=== PATIENT | female | born 1990 | race Hispanic/Latino ===

== ENCOUNTER 2024-06-10 18:34 | Inpatient (IN) | payer MEDICAID, OTHER, SELFPAY ==
[2024-06-10 19:14] VITALS: BMI 32.5
[2024-06-10] MEDS ORDERED: hydrALAZINE 20 MG/ML VIAL SLOW IVP PRN ×2 (20:44→23:21)
[2024-06-10] MEDS ORDERED: Lidocaine 1% (PF) 30 ML VIAL SC PRN (23:21)
[2024-06-10] MEDS ORDERED: Promethazine HCl 25 MG/ML VIAL IM PRN (23:21)
[2024-06-10] MEDS ORDERED: Ondansetron PF 4 MG/2 ML Vial IVP PRN (23:21)
[2024-06-10] MEDS ORDERED: Carboprost 250 MCG/ML AMP IM PRN (23:26)
[2024-06-10] MEDS ORDERED: Ibuprofen 800 MG TAB PO PRN (23:26)
[2024-06-10] MEDS ORDERED: Tranexamic Acid 1,000 MG/10 ML VIAL IVP PRN (23:26)
[2024-06-10] MEDS ORDERED: Diphenoxylate HCl/Atropine Tablet PO PRN (23:26)
[2024-06-10] MEDS ORDERED: Misoprostol 200 MCG TAB PR PRN (23:26)
[2024-06-10] MEDS ORDERED: Methylergonovine 0.2 MG/ML VIAL IM PRN (23:26)
[2024-06-10] MEDS ORDERED: Oxytocin 30 units/NS 500 ML 500 ML IV SCH ×2 (23:30)
[2024-06-10] MEDS: Lactated Ringer's 1,000 ML IV SCH (23:58)
[2024-06-11] MEDS: Penicillin G Potassium 5 MILL.UNITS in Sodium Chloride 0.9% 100 ML IVPB SCH (00:09)
[2024-06-11 00:10] LABS: Hematocrit 34.7 % (34.9-44.5); Hemoglobin 11.4 g/dL (12.0-15.5); Mean Corpuscular HGB CONC 32.9 g/dL (32.0-36.0); Mean Corpuscular Hemoglobin 28.2 pg (27.0-33.0); Mean Corpuscular Volume 85.9 fL (81.6-98.3); Platelet Count 217 10x3/uL (150-450); RBC Distribution Width 12.7 % (11.5-14.5); Red Blood Cell (RBC) Count 4.04 10x6/uL (3.90-5.03); White Blood Cell (WBC) Count 6.3 10x3/uL (3.5-10.5)
[2024-06-11 00:22] LABS: Glucose 76 mg/dL (70-105)
[2024-06-11 00:47] LABS: HBsAg Index 0.19 S/CO (0-0.99); Hep B Surf Ag - L&D Non-Reactive S/CO (NonReactive)
[2024-06-11 00:48] LABS: Syphilis Antibody Nonreactive (Nonreactive); Syphilis Antibody Index 0.03 S/CO (<1.00 Non-Reactive)
[2024-06-11] MEDS: Penicillin G 2.5 MILL.units 2.5 MILL.UNITS in Premix 1 BAG IVPB SCH (03:15)
[2024-06-11] MEDS: Oxytocin 30 units/NS 500 ML 500 ML IV SCH (03:18)
[2024-06-12] MEDS: fentaNYL 50 mcg/mL 1 mL Vial SLOW IVP PRN (00:08)
[2024-06-12] MEDS ORDERED: hydrALAZINE 20 MG/ML VIAL SLOW IVP PRN (05:52)
[2024-06-12] MEDS: Ibuprofen 800 MG TAB PO SCH (05:55)
[2024-06-12] MEDS ORDERED: Bisacodyl 10 MG SUPP PR PRN (06:00)
[2024-06-12] MEDS ORDERED: Boostrix 0.5 ML (Tdap) VIAL (>/=7 yrs of age) IM SCH (06:00)
[2024-06-12] MEDS ORDERED: Milk Of Magnesia 30 ML UDCUP PO PRN (06:00)
[2024-06-12] MEDS ORDERED: Ondansetron PF 4 MG/2 ML Vial IVP PRN (06:00)
[2024-06-12] MEDS ORDERED: Oxytocin 30 units/NS 500 ML 1,000 ML IV SCH (06:00)
[2024-06-12] MEDS ORDERED: Bupivacaine 0.25% HCL 30 ML VIAL ONE (07:00)
[2024-06-12] MEDS: Ferrous Sulfate 325 MG TAB PO SCH (08:10)
[2024-06-12] MEDS: Docusate 100 MG CAP PO SCH (08:10)
[2024-06-12] MEDS: Acetaminophen 500 MG TAB PO PRN (11:21)
[2024-06-12] MEDS: Benzocaine-Menthol 82.5 ML CAN TOP PRN (11:22)
[2024-06-12] MEDS: Phytonadione Neonatal 1 MG/0.5 ML AMP ONE (16:42)
[2024-06-12] MEDS: Lidocaine 1% (PF) 30 ML VIAL ONE (16:42)
[2024-06-12] MEDS: Erythromycin Base 0.5% Oint 1 GM TUBE ONE (16:42)
[2024-06-12] MEDS: Hepatitis B Vaccine 10 MCG/0.5 ML SYR ONE (16:42)
[2024-06-12] MEDS: Methylergonovine 0.2 MG/ML VIAL ONE (16:43)
[2024-06-12] MEDS: Oxytocin 30 units/NS 500 ML 500 ML ONE (16:43)
[2024-06-12] MEDS: Carboprost 250 MCG/ML AMP ONE (16:43)
[2024-06-12] MEDS: fentaNYL/Ropivacaine Epidural 100 ML ONE (16:43)
[2024-06-12] MEDS: Misoprostol 200 MCG TAB ONE (16:43)
[2024-06-12] MEDS: Tranexamic Acid 1,000 MG/10 ML VIAL ONE (16:43)
[2024-06-13 08:05] VITALS: BP 107/66; TEMP 97.7
== END 2024-06-13 15:05 | disposition home or self-care (01) | DRG 807 ==
LOC: CSHLD/OP 18:34 → CSHLD 23:40 → CSHPP 06-12 05:33
PROVIDERS: ADMIT Student in an Organized Health Care Education/Training Program; ATTEND Student in an Organized Health Care Education/Training Program
PROC: 10907ZC Drainage of Amniotic Fluid, Therapeutic from Products of Conception, Via Natural or Artificial Opening (ICD-10-PCS; 2024-06-11)
PROC: 10E0XZZ Delivery of Products of Conception, External Approach (ICD-10-PCS; principal; 2024-06-12)
PROC: 0KQM0ZZ Repair Perineum Muscle, Open Approach (ICD-10-PCS; 2024-06-12)
DX: O76 Abnormality in fetal heart rate and rhythm complicating labor and delivery (principal); Z37.0 Single live birth; Z3A.40 40 weeks gestation of pregnancy; O48.0 Post-term pregnancy; O99.824 Streptococcus B carrier state complicating childbirth; Z14.1 Cystic fibrosis carrier; O99.214 Obesity complicating childbirth; O70.1 Second degree perineal laceration during delivery
CPT/HCPCS: 36415; 36416; 51702; 82947; 85027; 86780; 86850; 86900; 86901; 87340; 99285; J0665; J2540; J2590; J3010; J7120